=== PATIENT | female | born 1985 | race African-American/Black ===

== ENCOUNTER 2016-11-28 20:21 | Emergency (ER) | payer MEDICARE ==
--- NOTE | ~2016-11-28 | US84 ---
[id number] [facility] [address] [place], [place] [address] [id number] MR#: [id number] Acc #: [id number] NAME: JONN HERNANDEZ : 1985 SEX: F STUDY DATE/TIME: 11/29/2016 8:01 UNIT: [facility] ROOM: STUDY DESCRIPTION: US LE Veins Complete Mynor Stdy Attending Physician: Harvey Mas M.D. Ordering Physician: Kurtis Coyne D.O. Primary Care Physician: [facility] MEDICAL IMAGING REPORT This report is preliminary unless electronic signature is present EXAM Bilateral leg vein Doppler, 11/29 INDICATIONS Bilateral leg pain and swelling for 2 weeks. Prior history of DVT 10 years ago. TECHNIQUE Venous ultrasound examination of both lower extremities was performed using grayscale, spectral Doppler and color flow Doppler imaging. FINDINGS The examination is negative. There is no evidence of deep venous thrombus from the groin to the lower calf bilaterally. Visualized greater saphenous veins are also patent. IMPRESSION Negative examination. No evidence of bilateral lower extremity deep venous thrombosis. Dictated by... Darek Mixon Jr., M.D. THIS IS AN ELECTRONICALLY VERIFIED REPORT Darek Mixon Jr., M.D. at 11/29/2016 12:36 PM NAREN/hyacinth TD: 11/29/2016 09:28 JOB #: [id number] MEDICAL IMAGING REPORT Page 1 of 1 COPY
--- NOTE | ~2016-11-28 | CT2 ---
[facility] A Service of [facility] RADIOLOGY TEXT RESULTS PATIENT: JONN HERNANDEZ LOCATION: [facility] : 89 UNIT #: [id number] AGE: [address]: Parker Mas MD SEX: F ORDER DR: [id number] [facility] [address] [place], [place] [address] [id number] MR#: [id number] Acc #: [id number] NAME: JONN HERNANDEZ : 1985 SEX: F STUDY DATE/TIME: 11/28/2016 21:47 UNIT: [facility] ROOM: STUDY DESCRIPTION: CT Abd and Pelv W Cont Attending Physician: Kurtis Coyne D.O. Ordering Physician: Davis Newman M.D. Primary Care Physician: [facility] MEDICAL IMAGING REPORT This report is preliminary unless electronic signature is present EXAM Abdomen and pelvis CT with contrast. DATE OF EXAM 11/28/2016 INDICATIONS Bilateral lower extremity swelling for 2 weeks extending to the ankles. History of cirrhosis, GI bleed, neuropathy and pancreatitis and prior biopsy. No history of malignancy. TECHNIQUE Contrast-enhanced CT of the abdomen and pelvis was performed. NOTE: This CT exam was performed with one or more of the following radiation dose reduction techniques: automatic exposure control, adjustment of mA and/or kV according to patient size, and iterative reconstruction. COMPARISON No comparisons. FINDINGS CT OF ABDOMEN: Included lung bases clear. No pericardial or pleural effusion. Aorta demonstrates no aneurysm or dissection. The spleen is unremarkable. The adrenal glands are normal. Pancreas is within normal limits. The gallbladder is surgically absent and the kidneys are unremarkable. The liver demonstrates fatty infiltration and morphologic changes of cirrhosis with relative atrophy of the left hepatic lobe. No focal liver mass on this single phase contrast-enhanced study. The liver would be better assessed with outpatient multiphase protocol with and without contrast CT or MRI when clinically appropriate if not previously [facility] A Service of [facility] RADIOLOGY TEXT RESULTS PATIENT: JONN HERNANDEZ LOCATION: [facility] : 89 UNIT #: [id number] AGE: [address]: Parker Mas MD SEX: F ORDER DR: performed. The main left and right portal veins are patent and the SMV and splenic vein are patent. There is a recanalized periumbilical vein and caput medusa. There are periesophageal and to a lesser extent small gastrohepatic varices. No ascites. CT PELVIS: Bladder unremarkable. Trace free fluid in the pelvis. No drainable fluid collection or adnexal mass. Collateral vessels extend into the pelvis from the abdomen. Moderate stool burden in the colon most characteristic of constipation. Appendix not identified. No secondary sign of appendicitis or inflammatory change in the right lower quadrant. Inguinal canals are unremarkable. Osseous structures demonstrate no suspicious bone lesion. IMPRESSION 1. Morphologic changes of cirrhosis and background fatty infiltration of the liver with imaging features most characteristic of portal hypertension including a recanalized periumbilical vein, caput medusa and periesophageal and to a lesser extent, gastrohepatic varices. 2. No evidence of ascites in the upper abdomen. Trace free fluid in the pelvis. 3. No distinct liver mass identified within limitations of this single-phase contrast study. See discussion above. The spleen measures in the normal range for size. 4. Constipation. No bowel obstruction or focal inflammatory change of the bowel. 5. Appendix not identified but no secondary sign of appendicitis. Dictated by... Naeem Acosta M.D. THIS IS AN ELECTRONICALLY VERIFIED REPORT Naeem Acosta M.D. at 11/29/2016 5:13 PM Izaiah TD: 11/28/2016 23:41 JOB #: [id number] MEDICAL IMAGING REPORT Page 1 of 1 COPY
[2016-11-28 21:14] LABS: EOSINOPHIL% 0.5 % (0.0-7.0); HEMOGLOBIN 8.7 gm/dL (12.0-16.0); LYMPHOCYTE# 1.4 X10e3 (1.0-3.5); LYMPHOCYTE% 30.3 % (17.0-45.0); MEAN CELL VOLUME 88.8 FL (83-96); MEAN CORPUSCULAR HEMOGLOBIN 27.7 PG (28-34); MEAN CORPUSCULAR HGB CONC 31.2 g/dL (30-36); MEAN PLATELET VOLUME 7.5 FL (6.5-11.5); MONOCYTE# 0.3 X10e3 (0-1.0); MONOCYTE% 7.1 % (3.0-12.0); NEUTROPHIL# 2.8 X10e3 (1.5-7.1); NEUTROPHIL% 61.1 % (40-75); PLATELET COUNT 113 X10e3 (140-420); RED BLOOD COUNT 3.15 X10e (3.90-5.30); RED CELL DISTRIBUTION WIDTH 25.5 % (11.0-15.5); WHITE BLOOD COUNT 4.6 X10e3 (4.0-10.5)
[2016-11-28 21:15] LABS: DIFF IND YES
[2016-11-28 21:31] LABS: URINE SOURCE CLEAN CATCH
[2016-11-28 21:32] LABS: BILIRUBIN, DIRECT 2.7 mg/dL (0.0-0.2); BILIRUBIN,INDIRECT 2.3 mg/dL (0.0-0.9); CALCIUM SERUM 8.5 mg/dL (8.4-10.2); CREATININE SERUM 0.5 mg/dL (0.6-1.4); GLOM FILT RATE Estimated 152.7 mL/min (>60); PROTEIN TOTAL SERUM 7.8 g/dL (6.0-8.3)
[2016-11-28 21:34] LABS: POTASSIUM 2.9 mmol/L (3.5-5.1)
[2016-11-28 21:46] LABS: PLATELET ESTIMATE DECREASED (NORMAL)
[2016-11-28 21:47] LABS: ANISOCYTOSIS MOD; OVALOCYTES PRESENT; TARGET CELLS SL
[2016-11-28 21:48] LABS: HYPOCHROMIA SL; MICROCYTOSIS SL; SCHISTOCYTES PRESENT
[2016-11-28 22:20] LABS: URINE APPEARANCE CLOUDY; URINE BLOOD NEG (NEG); URINE COLOR DK YELLOW; URINE GLUCOSE NEG (NEG); URINE KETONE NEG (NEG); URINE LEUKOCYTE ESTERASE TRACE (NEG); URINE NITRATE NEG (NEG); URINE PH 7.5 (5-8); URINE PROTEIN NEG (NEG); URINE SPECIFIC GRAVITY 1.016 (1.003-1.035)
[2016-11-28 22:24] LABS: CULTURE INDICATED? YES; URBCS1 AUWI 0-2 /[HPF] (0-2); URINE BACTERIA AUWI 2+ (NEGATIVE); URINE SQUAMOUS EPITHELIAL CELL FEW /[HPF]
[2016-11-28 22:35] LABS: URINE BILIRUBIN POS (NEG)
[2016-11-28 23:29] LABS: INR 1.4; PROTHROMBIN TIME (PATIENT) 15.1 SECONDS (9.6-11.5)
== END 2016-11-29 09:20 | disposition home or self-care (01) ==
LOC: CED 20:21
PROVIDERS: Emergency Medicine
DX: R60.0 Localized edema (principal); F10.10 Alcohol abuse, uncomplicated; K74.60 Unspecified cirrhosis of liver; E87.6 Hypokalemia; I10 Essential (primary) hypertension
CPT/HCPCS: 36415; 74177; 80048; 80076; 81003; 82150; 83690; 83735; 83880; 84484; 84703; 85025; 85379; 85610; 85730; 87086; 93970; 96372; 96374; 96375; 99284; G0480; J1885; J2405; J3475; Q9967